=== PATIENT | male | born 1950 | race Caucasian/White ===

== ENCOUNTER 2019-03-21 17:44 | Emergency (ER) | payer BC, MEDICARE, OTHER ==
[2019-03-21 17:59] VITALS: BP 114/79
--- NOTE | 2019-03-21 18:23 | UC ---
HPI Wound/Suture Re-check - HPI Summary HPI Summary: patient had a mole removed around the area of his waist band. it was not sutured the area now has a greenish yellow substance in the wound and the area around the wound is red, mild pain associated with it. - History Of Current Complaint Chief Complaint: UCSkin Stated Complaint: POSS INFECTION FROM BIOPSY Time Seen by Provider: 03/21/19 17:59 Hx Obtained From: Patient Onset/Duration: Sudden Onset, Lasting Days Severity: Moderate Pain Intensity: 3 - Allergies/Home Medications Allergies/Adverse Reactions: Allergies Allergy/AdvReac Type Severity Reaction Status Date / Time Penicillins Allergy Severe Hives Verified 03/21/19 18:00 Home Medications: Home Medications Acetaminophen TAB* [Tylenol TAB*] 650 mg PO Q6H PRN 03/21/19 [History Confirmed 03/21/19] Ibuprofen TAB* [Motrin TAB* 600 MG] 600 mg PO Q6H PRN 03/21/19 [History Confirmed 03/21/19] Propranolol TAB* [Inderal TAB*] 60 mg PO DAILY 03/21/19 [History Confirmed 03/21] PMH/Surg Hx/FS Hx/Imm Hx Previously Healthy: Yes Other History Of: Negative For: HIV, Hepatitis B, Hepatitis C, Anticoagulant Therapy - Surgical History Surgical History: Yes Surgery Procedure, Year, and Place: TRACHEOSTOMY, APPENDECTOMY, DEVIATED SEPTUM REPAIR, TONSILLECTOMY - Family History Known Family History: Negative: Seizure Disorder, Blood Disorder - Social History Alcohol Use: Daily Alcohol Amount: 2-3 SHOTS/NIGHT (& SOMETIMES DURING THE NIGHT IF HE WAKES UP) Substance Use Type: None Smoking Status (MU): Never Smoked Tobacco Review of Systems All Other Systems Reviewed And Are Negative: Yes Skin: Positive: Other - open wound Is Patient Immunocompromised?: No Physical Exam Triage Information Reviewed: Yes Appearance: Well-Appearing, Well-Nourished, Pain Distress Vital Signs: Initial Vital Signs Temp 97.9 F 03/21/19 17:54 Pulse 59 03/21/19 17:54 Resp 16 03/21/19 17:54 BP 114/79 03/21/19 17:54 Pulse Ox 100 03/21/19 17:54 Vital Signs Reviewed: Yes Eye Exam: Normal ENT Exam: Normal ENT: Positive: Pharyngeal erythema, TMs normal Dental Exam: Normal Neck exam: Normal Respiratory Exam: Normal Cardiovascular Exam: Normal Abdominal Exam: Normal Bowel Sounds: Positive: Present Musculoskeletal Exam: Normal Neurological Exam: Normal Psychological Exam: Normal Skin: Positive: Significant Lesion(s) - small area that has been left to heal by secondary intention, yeloow slough tissue in the center of wound, periwound is erthemic. Course/Dx - Course Course Of Treatment: hx obtained, exam performed ,meds reviewed, treated for possible infection and educated on how to care for the wound. new bandage placed. - Diagnosis Provider Diagnosis: Open wound of abdomen Discharge - Sign-Out/Discharge Documenting (check all that apply): Patient Departure All imaging exams completed and their final reports reviewed: No Studies - Discharge Plan Condition: Stable Disposition: HOME Prescriptions: Cephalexin CAP* [Keflex CAP*] 500 mg PO BID #10 cap Patient Education Materials: Wound Infection (ED) Referrals: No Primary Care Phys,NOPCP [Primary Care Provider] - Additional Instructions: 1. take the medication as prescribed. 2. Soak the area and use a gauze pad to remove the yellow slough. 3. marcelo well and place the telfa pads over the area to protect it. 4. do not use neosporin or other substance over the wound 5. Follow up if not improving. - Billing Disposition and Condition Condition: STABLE Disposition: Home
== END 2019-03-21 18:28 | disposition home or self-care (01) ==
LOC: UCEAST 17:44
DX: S31.109A Unspecified open wound of abdominal wall, unspecified quadrant without penetration into peritoneal cavity, initial encounter (principal); Y83.8 Other surgical procedures as the cause of abnormal reaction of the patient, or of later complication, without mention of misadventure at the time of the procedure; Y92.9 Unspecified place or not applicable; Z88.0 Allergy status to penicillin
CPT/HCPCS: 99212; G0463

== ENCOUNTER 2019-04-08 15:40 | Emergency (ER) | payer MEDICARE ==
[2019-04-08 15:49] VITALS: BP 163/86
--- NOTE | 2019-04-08 16:26 | UC ---
Skin Complaint HPI - HPI Summary HPI Summary: 68-year-old male presents for multiple insect stings. Patient states that 5 days ago he received multiple insect stings to be back of his right lower leg and then 2 days ago was stung again on the left ankle. States the multiple stings that he received on his right lower leg were initially painful but are now just itchy. Reports erythema to the site of the stings that has not changed in size since the incident. Denies fever, chills, swelling of the lips , tongue, throat, or difficulty breathing. - History of Current Complaint Chief Complaint: UCBiteInjury Time Seen by Provider: 04/08/19 16:18 Stated Complaint: BEE STING Hx Obtained From: Patient Pain Intensity: 2 - Allergy/Home Medications Allergies/Adverse Reactions: Allergies Allergy/AdvReac Type Severity Reaction Status Date / Time Penicillins Allergy Severe Hives Verified 04/08/19 15:49 PMH/Surg Hx/FS Hx/Imm Hx Cardiovascular History: Hypertension Other History Of: Negative For: HIV, Hepatitis B, Hepatitis C, Anticoagulant Therapy - Surgical History Surgical History: Yes Surgery Procedure, Year, and Place: TRACHEOSTOMY, APPENDECTOMY, DEVIATED SEPTUM REPAIR, TONSILLECTOMY - Family History Known Family History: Positive: Non-Contributory - Social History Occupation: Employed Full-time Lives: With Family Alcohol Use: Daily Alcohol Amount: 2-3 SHOTS/NIGHT (& SOMETIMES DURING THE NIGHT IF HE WAKES UP) Substance Use Type: None Smoking Status (MU): Never Smoked Tobacco - Immunization History Most Recent Tetanus Shot: not sure Review of Systems All Other Systems Reviewed And Are Negative: Yes Constitutional: Negative: Fever, Chills Skin: Positive: Other - See HPI Respiratory: Positive: Negative Cardiovascular: Positive: Negative Gastrointestinal: Positive: Negative Genitourinary: Positive: Negative Musculoskeletal: Positive: Negative Neurological: Positive: Negative Is Patient Immunocompromised?: No Physical Exam - Summary Physical Exam Summary: GENERAL APPEARANCE: Well developed, well nourished, alert and cooperative, and appears to be in no acute distress. THROAT: Lips and tongue normal. Pharynx normal. No tonsilar inflammation, swelling, exudate, or lesions. Uvula midline. Airway patent. CARDIAC: Normal S1 and S2. No S3, S4 or murmurs. Rhythm is regular. There is no peripheral edema, cyanosis or pallor. Extremities are warm and well perfused. Capillary refill is less than 2 seconds. Peripheral pulses intact. LUNGS: Clear to auscultation without rales, rhonchi, wheezing or diminished breath sounds. ABDOMEN: Positive bowel sounds. Soft, nondistended, nontender. No guarding or rebound. No masses or hepatosplenomegally. MUSKULOSKELETAL: ROM intact to all extremities. No joint erythema or tenderness. Normal muscular development. Normal gait. SKIN: Skin normal color, texture and turgor. There is single circular erythematous lesion 1 cm in diamter with mild edema to the left anterior ankle consistent with an insect sting/bite. There is also a 4.5 cm non-tender area of erythema without induration, fluctuance, or drainage to the posterior, distal right lower leg. Triage Information Reviewed: Yes Vital Signs: Initial Vital Signs Temp 96.9 F 04/08/19 15:45 Pulse 64 04/08/19 15:45 Resp 16 04/08/19 15:45 BP 163/86 04/08/19 15:45 Pulse Ox 98 04/08/19 15:45 Vital Signs Reviewed: Yes Images Front/Back of Body, Lg ([place]): 1 - Single circular erythematous lesion 1 cm in diamter with mild edema. 2 - 4.5 cm non-tender area of erythema without induration, fluctuance, or drainage. Course/Dx - Course Course Of Treatment: 68-year-old male presents for multiple insect stings. Patient states that 5 days ago he received multiple insect stings to be back of his right lower leg and then 2 days ago was stung again on the left ankle. States the multiple stings that he received on his right lower leg were initially painful but are now just itchy. Reports erythema to the site of the stings that has not changed in size since the incident. Denies fever, chills, swelling of the lips , tongue, throat, or difficulty breathing. Afebrile. Vital signs stable. Patient had a single circular erythematous lesion 1 cm in diamter with mild edema to the left anterior ankle consistent with an insect sting/bite. There is also a 4.5 cm non-tender area of erythema without induration, fluctuance, or drainage to the posterior, distal right lower leg that appears to be a local reaction to the insect stings/bites. Remainder of exam was unremarkable. Recommending symptomatic treatment for localized reaction to an insect sting. I have provided the patient with a prescription for triamcinolone cream to be applied to the affected areas twice daily for more than 2 weeks. Also recommending [id number] diphenhydramine as needed for itching. He is to return here or follow up with primary care provider in 5-7 days if symptoms are not improving. Anticipatory guidance and warning symptoms were reviewed with the patient. Verbalizes understanding and agrees with plan of care. - Differential Diagnoses - Skin Complaint Differential Diagnoses: Cellulitis, Local Allergic Reaction - Diagnoses Provider Diagnosis: Insect sting Discharge - Sign-Out/Discharge Documenting (check all that apply): Patient Departure All imaging exams completed and their final reports reviewed: No Studies - Discharge Plan Condition: Stable Disposition: HOME Prescriptions: Triamcinolone 0.5% CREAM(NF) [Triamcinolone 0.5% CREAM*] 1 applic TOPICAL BID # 1 tube Patient Education Materials: Insect Bite or Sting (ED) Referrals: No Primary Care Phys,NOPCP [Primary Care Provider] - Additional Instructions: You appear to be having localized reaction to an insect sting or bite. I do not see any evidence of an infection. Use triamcinolone cream to the affected areas twice a day to help with the itching. Do not use for more than 2 weeks. You may also use [id number] diphenhydramine (Benadryl) according to directions as needed for itching. Return here or follow-up with your primary care provider in 5-7 days if symptoms are not improving. Seek immediate medical attention in the emergency room if you develop a fever greater than 100.5 F, the redness continues to spread, you get red streaking up the leg, severe pain, or any worsening of symptoms. - Billing Disposition and Condition Condition: STABLE Disposition: Home
== END 2019-04-08 16:40 | disposition home or self-care (01) ==
LOC: UCEAST 15:40
DX: S30.860A Insect bite (nonvenomous) of lower back and pelvis, initial encounter (principal); S80.861A Insect bite (nonvenomous), right lower leg, initial encounter; S90.561A Insect bite (nonvenomous), right ankle, initial encounter; W57.XXXA Bitten or stung by nonvenomous insect and other nonvenomous arthropods, initial encounter; Y92.9 Unspecified place or not applicable; Z88.0 Allergy status to penicillin
CPT/HCPCS: 99212; G0463